=== PATIENT | female | born 1975 | race Hispanic/Latino ===

== ENCOUNTER 2018-06-11 00:43 | Observation (INO) | payer OTHER ==
[2018-06-11] MEDS ORDERED: Ondansetron HCl/PF 4 MG/2 ML Vial IVP PRN (03:27)
[2018-06-11] MEDS ORDERED: hydrALAZINE 20 MG/ML VIAL SLOW IVP PRN (03:27)
[2018-06-11] MEDS ORDERED: Acetaminophen 325 MG TAB PO PRN (03:27)
[2018-06-11] MEDS ORDERED: Ondansetron ODT 4 MG TAB PO PRN (03:27)
[2018-06-11] MEDS ORDERED: Ketorolac Tromethamine 30 MG/ML VIAL IVP SCH (03:30)
[2018-06-11] MEDS ORDERED: diphenhydrAMINE 50 MG/ML VIAL IVP SCH (03:30)
[2018-06-11 04:17] VITALS: BMI 28.3
[2018-06-11] MEDS ORDERED: Artificial Tears 18 DROP/0.9 ML EA EYE PRN (04:25)
--- NOTE | 2018-06-11 05:47 | HP-2 ---
ADMISSION DATE: 06/11/2018. CODE STATUS: FULL. PRIMARY CARE PHYSICIAN: Jj corrigan, out of town in [place], [place]. ADMITTING ATTENDING: Dr. Rock Valles. ADMITTING RESIDENT: Dr. Ascencion Tinsley. HISTORIAN: Patient and . CHIEF COMPLAINT: Facial droop. HISTORY OF PRESENT ILLNESS: The patient is a very pleasant 43-year-old female with no reported past medical history who initially presented to the [facility] with a complaint of right-sided facial droop for approximately the last 24 hours. The patient notes that yesterday morning at around 10:00 a.m., it was pointed out to her that she had a right- sided facial droop and since that time the patient also reports a posterior headache that she rates at a 4/10. The patient denies any type of symptoms similar to these in the past. The patient at no point complained of any weakness, slurred speech, syncope, change in vision, or difficulty walking. The patient takes no medications regularly, however, was given aspirin in the outside emergency department. The patient otherwise denies fevers, chills, change in vision, weakness, trouble with balance, chest pain, palpitations, cough, shortness of breath, abdominal pain, nausea, vomiting, diarrhea, rash or recent sick contacts. The patient also denies any history of sores or fever blisters on lips or ears. ER: In the [facility], the patient had a CT head and CTA head and neck which showed left anterior frontal lobe encephalomalacia. The patient was deemed out of the TPA candidate window, but was given aspirin. PAST MEDICAL HISTORY: None. PAST SURGICAL HISTORY: 1. section x2. 2. Cholecystectomy. 3. Right cataract surgery. ALLERGIES: No known drug allergies. MEDICATIONS: None. FAMILY HISTORY: The patient denies any family history of heart disease, stroke , or diabetes. SOCIAL HISTORY: The patient denies tobacco, alcohol, or illicit drug use. She is currently with 2 children and denies any recent ill contacts. REVIEW OF SYSTEMS: GENERAL: The patient denies fevers, chills, weight, appetite or sleep changes, night sweats, or fatigue. EYES: The patient denies vision changes or eye pain. ENT: The patient denies nasal congestion, rhinorrhea, or sore throat. RESPIRATORY: The patient denies cough, congestion, shortness of breath or exercise intolerance. CARDIOVASCULAR: The patient denies chest pain, palpitations, edema, PND, or orthopnea. GASTROINTESTINAL: The patient denies nausea, vomiting, diarrhea, constipation, or abdominal pain. GENITOURINARY: The patient denies dysuria or polyuria. SKIN: The patient denies rashes, lesions, or itching. MUSCULOSKELETAL: The patient denies pain, stiffness, swelling, arthritis, or arthralgias. NEUROLOGIC: The patient endorses headache and facial droop. The patient denies weakness, numbness, syncope, or seizure. PSYCHIATRIC: The patient denies anxiety or depression. PHYSICAL EXAMINATION: VITAL SIGNS: Blood pressure 104/81, pulse 81, respirations 16, pulse oximetry 96% on room air, T-max 98.3, current weight 70.3 kg. GENERAL: Alert and oriented x3 in no acute distress. Well-developed, appropriately interactive female. HEENT: PERRL, EOMI. Conjunctival within normal limits. ENT: TMs pearly brown without bulging or erythema, no external ear vesicles or scabbing. Nasal, mucosa, and oropharynx within normal limits. NECK: Supple, no lymphadenopathy, no thyromegaly, no bruits. CARDIOVASCULAR: Regular rate and rhythm, no murmurs, no gallops appreciated. Radial and pedal pulses felt 2+ bilaterally. RESPIRATORY: Normal effort, no retractions. Clear to auscultation bilaterally. ABDOMEN: Soft, nontender to palpation. Bowel sounds active in all 4 quadrants. No masses, no distention, no CVA tenderness. SKIN: Warm and dry. No cyanosis. No lesions. EXTREMITIES: No clubbing, no cyanosis, no edema. MUSCULOSKELETAL: Structure and tone within normal limits. Muscle strength 5/5 in all extremities with full range of motion. NEUROLOGIC: Right-sided facial droop noted including forehead consistent with facial nerve palsy. Sensation within normal limits. DTRs 2/4 patellar. Cranial nerves II-XII grossly intact, besides facial nerve, GCS 15. PSYCHIATRIC: Appropriate mood and affect. LABS: Laboratory evaluation from the outside facility not available at the time of this dictation. EKG showed normal sinus rhythm with a rate of [address] head showed no acute process. 2. CTA head and neck showed left anterior frontal lobe encephalomalacia. ASSESSMENT AND PLAN: The patient is a 43-year-old female with: 1. 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 - The patient was transferred from an outside facility due to concern that she had right-sided extremity weakness; however, the patient overtly denies any episodes of weakness and exams since presentation reveal normal strength by ER MD and myself. However, due to the potential initial presentation of weakness along with facial droop, we will proceed with observation to the stroke unit. - We will obtain MRI brain without contrast in the morning. - Highest documented NIH score was 4 in outside facility, continue with neuro checks q.4 hours. - Continue with aspirin p.o. daily. - Further risk stratification workup including TSH, hemoglobin A1c, and fasting lipid panel. - We will also consult the stroke team until acute cerebrovascular accident is ruled out. - Consider initiating treatment with steroids. DISPOSITION: The patient admitted under observation status for anticipated length of stay of less than 2 midnights, pending clinical course. Symptomatic medications will be provided. History and physical as well as management discussed with Dr. Rock Valles, who agrees with the above assessment and plan. RUSS
[2018-06-11 05:50] LABS: Cardiac Risk 4.6 (Less than 4.5)
[2018-06-11] MEDS ORDERED: Acetaminophen 500 MG TAB PO PRN (05:52)
[2018-06-11] MEDS ORDERED: Sodium Chloride 0.9% 1,000 ML IV SCH (06:00)
[2018-06-11] MEDS ORDERED: Enoxaparin Sodium 40 MG/0.4 ML SYRINGE SC SCH (09:00)
[2018-06-11 11:47] VITALS: TEMP 98
[2018-06-11 11:59] VITALS: BP 98/54
--- NOTE | 2018-06-11 13:39 | HP ---
I have reviewed the history and physical of Dr. Ascencion Tinsley. I have discussed the case with him and agree with his assessment and plan. Briefly, Ms. Jean is a pleasant 43-year-old female, who does not speak Jamaican. She wa s transferred from an outlying ER with the possibility of a stroke. She was found to have some facia l drooping on the right side involving the forehead as well. As it turns out, her symptoms are much more consistent with Elizalde's palsy. She denies any other neurological symptoms such as aforementioned right-sided weakness. PHYSICAL EXAMINATION: GENERAL: She is pleasant, alert. As stated, not speaking Jamaican. VITAL SIGNS: Her blood pressure is 104/80, her pulse rate is 80, respirations are 16, her room air p ulse ox is 96%. EAR, NOSE, THROAT: She does have a complete right-sided facial palsy consistent with Elizalde's palsy. NECK: Supple. CARDIAC: Her heart rhythm is regular, no gallop or murmur noted. LUNGS: Clear, without rales, rhonchi, or wheezes. ABDOMEN: Flat and soft, without guarding, rebound or rigidity. NEUROLOGIC: She has no focal deficits other than the aforementioned Elizalde's palsy. LABORATORY DATA: Glucose is 128. Her triglycerides are 129, cholesterol 162, LDL 101 with an HDL of 35. Her A1c is 6. Her TSH is 1.74. 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 We were going to get a confirmatory MRI to completely rule out c erebrovascular accident. We later found out she has a metal device in her eye from a previous surger y. We will therefore not be able to proceed with an MRI and I doubt that is really indicated any way . We will start the patient on antiviral therapy and prednisone and anticipation of discharge today.
[2018-06-12] MEDS ORDERED: Aspirin 81 mg Enteric Coated Tablet PO SCH (09:00)
--- NOTE | 2018-06-12 14:34 | DIS-2 ---
DATE OF ADMISSION: 06/11/2018 DATE OF DISCHARGE: 06/11/2018 RESIDENT: Dr. Katharina Victor. ADMITTING ATTENDING: Dr. Rock Valles. DISCHARGE ATTENDING: Dr. Rock Valles. CONSULTS: None. PROCEDURES: None. PRIMARY DIAGNOSIS: Elizalde's palsy. DISCHARGE MEDICATIONS: 1. Acetaminophen 500 mg tabs, may take 1000 mg p.o. q.6 hours p.r.n. headache. 2. Artificial Tears, Tears Naturale free 2 drops each eye q.4 hours p.r.n. dry eyes. 3. Valacyclovir 1000 mg p.o. t.i.d. for 7 days, #21. 4. Prednisone 60 mg p.o. q.a.m. 10 days, #25. DISCONTINUED MEDICATIONS: None. HISTORY OF PRESENT ILLNESS: The patient with no past medical history who presented to the [facility] department with complaint of right-sided facial droop for 1 day as well as a posterior headache . CT head and CTA head and neck was not suggestive of ischemia. Left anterior frontal lobe encephal omalacia was noted. Patient was given aspirin and transferred. Evaluation in our ER showed complete right facial droop. No other associated weakness, slurred speech. MRI had been ordered, but was un able to be completed due to history of metal in the right eye after cataract surgery. The patient di agnosed with Elizalde's palsy. Hemoglobin A1c 6.0. TSH 1.7. Triglycerides 129, cholesterol 162, LDL 10 1, HDL 35. There was no concern for CVA and the patient was discharged with diagnosis of Elizadle's pals y. The patient had continued right-sided complete facial droop on discharge. DISPOSITION: Stable. DISCHARGE INSTRUCTIONS: 1. Location: Home. 2. Diet: Regular. 3. Activity: As tolerated. 4. Follow up with PCP in 1 week.
--- NOTE | 2018-06-13 13:47 | DIS-2 ---
DATE OF ADMISSION: 06/11/2018 DATE OF DISCHARGE: 06/11/2018 RESIDENT: Dr. Katharina Victor. ADMITTING ATTENDING: Dr. Rock Valles. DISCHARGE ATTENDING: Dr. Rock Valles. CONSULTS: None. PROCEDURES: None. PRIMARY DIAGNOSIS: Elizalde's palsy. DISCHARGE MEDICATIONS: 1. Acetaminophen 500 mg tabs, may take 1000 mg p.o. q.6 hours p.r.n. headache. 2. Artificial Tears, Tears Naturale free 2 drops each eye q.4 hours p.r.n. dry eyes. 3. Valacyclovir 1000 mg p.o. t.i.d. for 7 days, #21. 4. Prednisone 60 mg p.o. q.a.m. for 10 days, #25. DISCONTINUED MEDICATIONS: None. HISTORY OF PRESENT ILLNESS: The patient with no past medical history who presented to an outside emergency department with complaint of right-sided facial droop for 1 day as well as a posterior headache. CT head and CTA head and neck was not suggestive of ischemia. Left anterior frontal lobe encephalomalacia was noted. Patient was given aspirin and transferred. Evaluation in our ER showed complete right facial droop. No other associated weakness, slurred speech. MRI had been ordered, but was unable to be completed due to history of metal in the right eye after cataract surgery. The patient diagnosed with Elizalde's palsy. Hemoglobin A1c 6.0. TSH 1.7. Triglycerides 129, cholesterol 162, LDL 101, HDL 35. There was no concern for CVA and the patient was discharged with diagnosis of Elizalde's palsy. The patient had continued right- sided complete facial droop on discharge. DISPOSITION: Stable. DISCHARGE INSTRUCTIONS: 1. Location: Home. 2. Diet: Regular. 3. Activity: As tolerated. 4. Follow up with PCP in 1 week. RUSS
--- NOTE | 2018-06-14 13:39 | EKG ---
Test Reason : Blood Pressure : / mmHG Vent. Rate : 070 BPM Atrial Rate : 070 BPM P-R Int : 138 ms QRS Dur : 084 ms QT Int : 392 ms P-R-T Axes : 043 000 020 degrees QTc Int : 423 ms Normal sinus rhythm Normal ECG Confirmed by MIKA MEADOWS M.D. ([id number]), assignment editor INDU ROBERTS ([id number]) on 06/14/2018 1:39:26 PM Referred By: Confirmed By:MIKA MEADOWS M.D.
== END 2018-06-11 15:33 | disposition home or self-care (01) ==
LOC: ERS 00:43 → 2SE 03:16 → INTOOBSV 03:16
PROVIDERS: ADMIT Family Medicine; ATTEND Family Medicine
DX: G51.0 Bell's palsy (principal); G93.89 Other specified disorders of brain
CPT/HCPCS: 36415; 36416; 80061; 83036; 84443; 93005; 96374; 96375; 99285; G0378; G8978-GP-CH; G8979-GP-CH; G8980-GP-CH; J1200; J1650; J1885